=== PATIENT | female | born 1985 | race Caucasian/White ===

== ENCOUNTER 2017-02-08 23:54 | Emergency (ER) | payer BC ==
[~2017-02-08] VITALS: Ht 170.2 cm; Wt 117.3 kg
[2017-02-08 23:55] VITALS: BP 153/99
[2017-02-09] MEDS ORDERED: IBUPROFEN 200 MG TABLET ONE (00:16)
[2017-02-09] MEDS ORDERED: IBUPROFEN 200 MG TABLET PO ONE (00:30)
== END 2017-02-09 00:22 | disposition home or self-care (01) ==
LOC: ED 02-09
DX: K02.9 Dental caries, unspecified (principal); K08.89 Other specified disorders of teeth and supporting structures
CPT/HCPCS: 99283